=== PATIENT | female | born 1980 | race Caucasian/White ===

== ENCOUNTER 2017-09-17 16:59 | Emergency (ER) | payer SELFPAY ==
--- NOTE | 2017-09-17 17:17 | ED.PDOC ---
History of Present Illness - General Chief Complaint: General Stated Complaint: Right hand numbness/tingling, chest d Time Seen by Provider: 09/17/17 17:06 Source: patient - History of Present Illness Initial Comments: 36 YEAR OLD COMPLAINTS OF CHRONIC INTERMITTENT RIGHT SIDED SHARP CHEST PAIN ASSOCIATED WITH COUGH MOVEMENT FOR THE PAST SEVERAL MONTHS SHE HAS NO KNOWN CORONARY OR THROMBOEMBOLIC RISK FACTORS SHE HAS NO FEVER CHILLS NO TRAUMA NO ASSOCIATED SHORTNESS OF BREATH NO SYNCOPE NO DIAPHORESIS NO RADIATIONS TO ARM NECK OR JAW Timing/Duration: intermittent Severity: moderate Improving Factors: nothing Worsening Factors: nothing Associated Symptoms: denies symptoms Allergies/Adverse Reactions: Allergies NO KNOWN ALLERGY Allergy (Verified 09/17/17 17:14) Home Medications: Ambulatory Orders Naproxen [Naproxen EC] 500 mg PO Q12HRS #20 tab 09/17/17 Review of Systems - Review of Systems Constitutional: States: see HPI EENTM: States: no symptoms reported Respiratory: States: no symptoms reported Cardiology: States: see HPI Gastrointestinal/Abdominal: States: no symptoms reported Genitourinary: States: no symptoms reported Musculoskeletal: States: no symptoms reported Skin: States: no symptoms reported Neurological: States: no symptoms reported Endocrine: States: no symptoms reported Hematologic/Lymphatic: States: no symptoms reported All other Systems: Reviewed and Negative Past Medical History (General) - Patient Medical History Hx Stroke: No Hx Asthma: No Hx of COPD: No Hx Congestive Heart Failure: No Hx Hypertension: No Hx Thyroid Disease: No Hx Diabetes: No Hx Cancer: No Hx Hepatitis C: No Hx MRSA: No Surgical History: no surgical history - Vaccination History Hx Tetanus, Diphtheria Vaccination: No Hx Influenza Vaccination: No Hx Pneumococcal Vaccination: No - Social History Hx Tobacco Use: No Hx Chewing Tobacco Use: No Hx Alcohol Use: No Hx Substance Use: No Hx Substance Use Treatment: No Hx Depression: No Hx Physical Abuse: No Hx Emotional Abuse: No Hx Suspected Abuse: No - Female History Patient is a Female of Child Bearing Age (10 -59 yrs old): Yes Patient : No Family Medical History - Family History Mother Family History: Unknown Living Status: Still Living Hx Family Cancer: Yes Physical Exam - Physical Exam General Appearance: Anxious Eye Exam: bilateral normal, bilateral abnormal EOM Ears, Nose, Throat: hearing grossly normal, normal ENT inspection, normal pharynx, abnormal TM (R) Neck: non-tender, full range of motion, supple Respiratory: chest non-tender, lungs clear, normal breath sounds, no respiratory distress, no accessory muscle use Cardiovascular/Chest: normal peripheral pulses, regular rate, rhythm, no edema, no gallop, no JVD - TENDER OVER THE RIGHT COSTOCHONDRAL JUNCTIONS, no murmur Peripheral Pulses: radial,right: 2+, radial,left: 2+, femoral,right: 2+, femoral ,left: 2+ Gastrointestinal/Abdominal: normal bowel sounds, non tender, soft, no organomegaly, no pulsatile mass Back Exam: normal inspection, no CVA tenderness 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 Copy, Patient Portal Self Enrollment Diet: resume usual diet Activity: increase activity as tolerated Referrals: Miracle Almendarez NP [Primary Care Provider] - 1-2 Weeks Prescriptions: Naproxen [Naproxen EC] 500 mg PO Q12HRS #20 tab Home Medications: Ambulatory Orders Naproxen [Naproxen EC] 500 mg PO Q12HRS #20 tab 09/17/17
[2017-09-17] MEDS ORDERED: DEXAMETHASONE INJ 10 MG/ML VIAL IM ONE (17:21)
[2017-09-17] MEDS ORDERED: KETOROLAC TROMETHAMINE INJ 30 MG/ML VIAL IV ONE (17:21)
--- NOTE | 2017-09-17 18:01 | RAD ---
Procedure: XR CHEST 1 VIEW Exam Date: 09/17/2017 Ordering Provider: Haylee Vidales Clinical Indication: Cough Comparison: 12/15/2015 Findings: Cardiomediastinal silhouette: Within normal limits Pulmonary vasculature : Unremarkable Aortic contour: Unremarkable Focal lung consolidation: None Pleural effusion: None Pneumothorax: None Bones and soft tissues: Nonacute Impression: 1. No acute abnormalities in the chest. 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
[2017-09-17 18:28] VITALS: BP 115/65; TEMP 99.9; O2SAT 100
== END 2017-09-17 18:26 | disposition home or self-care (01) ==
LOC: ER 16:59
DX: M94.0 Chondrocostal junction syndrome [Tietze] (principal)

== ENCOUNTER 2018-06-22 19:52 | Emergency (ER) | payer SELFPAY ==
[2018-06-22 20:21] VITALS: TEMP 98.4
--- NOTE | 2018-06-22 20:35 | ED.PDOC ---
History of Present Illness - General Chief Complaint: Upper Extremity Injury Stated Complaint: right shoulder and arm pain Time Seen by Provider: 06/22/18 20:11 Source: patient Exam Limitations: no limitations - History of Present Illness Initial Comments: Jelena Mccall 37 y/o female stated that while she was walking at work had sudden onset of sharp pains on her right arm and numbness which had been constant for the last 1-2 hours and decided to come to ER.No chronic medical problem;no history of trauma recent or remote on neck and right upper extremities.Denies neck pains. Occurred: just prior to arrival Pain - Upper Extremity: moderate: Shoulder, right, Upper arm, right, Elbow, right, Forearm, right, Wrist, right, Hand, right Method of Injury: unknown, other - see hpi Improving Factors: nothing Worsening Factors: nothing Allergies/Adverse Reactions: Allergies NO KNOWN ALLERGY Allergy (Verified 06/22/18 20:21) Home Medications: Ambulatory Orders Methocarbamol [Robaxin] 750 mg PO BID PRN #10 tab 06/23/18 Tramadol HCl 50 mg PO TID PRN #14 tab 06/23/18 predniSONE 20 mg PO DAILY 7 Days #7 tab 06/23/18 Review of Systems - Review of Systems Constitutional: States: no symptoms reported EENTM: States: no symptoms reported Respiratory: States: no symptoms reported Cardiology: States: no symptoms reported Gastrointestinal/Abdominal: States: no symptoms reported Genitourinary: States: no symptoms reported Musculoskeletal: States: see HPI Skin: States: no symptoms reported Neurological: States: no symptoms reported Hematologic/Lymphatic: States: other - history of heavy periods since 18 y/o Past Medical History (General) - Patient Medical History Hx Seizures: No Hx Stroke: No Hx Dementia: No Hx Asthma: No Hx of COPD: No Hx Cardiac Disorders: No Hx Congestive Heart Failure: No Hx Pacemaker: No Hx Hypertension: No Hx Thyroid Disease: No Hx Diabetes: No Hx Gastroesophageal Reflux: No Hx Renal Disease: No Hx Cancer: No Hx of HIV: No Hx Hepatitis C: No Hx MRSA: No Surgical History: no surgical history - Vaccination History Hx Tetanus, Diphtheria Vaccination: No Hx Influenza Vaccination: No Hx Pneumococcal Vaccination: No - Social History Hx Tobacco Use: No Hx Chewing Tobacco Use: No Hx Alcohol Use: No Hx Substance Use: No Hx Substance Use Treatment: No Hx Depression: No Hx Physical Abuse: No Hx Emotional Abuse: No Hx Suspected Abuse: No - Female History Patient is a Female of Child Bearing Age (10 -59 yrs old): Yes Hx Last Menstrual Period: 06/18/18 - [id number] Patient : No Family Medical History - Family History Mother Family History: Unknown Living Status: Still Living Hx Family Hypertension: Yes - dad Hx Cardiac Disease: Yes - dad Hx Family Cancer: Yes Father Hx Family Hypertension: Yes Physical Exam - Physical Exam General Appearance: Alert, Comfortable, No apparent distress Eyes, Ears, Nose, Throat Exam: normal ENT inspection, TMs normal, pharynx normal Neck: non-tender, full range of motion, supple, normal inspection Cardiovascular/Respiratory: regular rate, rhythm, no M/R/G, normal peripheral pulses, no JVD, other - good radial pulses bilaterally Abdominal Exam: non-tender, no organomegaly Back Exam: normal inspection, no CVA tenderness, no vertebral tenderness Shoulder Exam: normal inspection, non-tender, no evidence of injury, normal ROM Elbow/Forearm Exam: normal inspection, non-tender, no evidence of injury, normal ROM Wrist Exam: normal inspection, non-tender, no evidence of injury, normal ROM Hand Exam: normal inspection, non-tender, no evidence of injury, normal ROM Neuro/Tendon: normal sensation, normal motor functions, normal tendon functions , responds to pain, no evidence tendon injury Mental Status: alert, oriented x 3 Skin Exam: normal color, warm/dry Progress - Progress Progress: 06/22/18 21:10 Vital Signs - 8 hr 06/22/18 20:00 Temperature 98.4 F Pulse Rate [ 76 monitor] Respiratory 18 Rate Blood Pressure 118/53 [Left Arm] O2 Sat by Pulse 97 Oximetry - Results/Orders Results/Orders: 06/22/18 20:38 IV Care:Saline Lock per Protoc QSHIFT 06/22/18 20:45 EKG STAT 06/22/18 22:06 Cervical Spine [CT] Stat Laboratory Results - last 24 hr 06/22/18 06/22/18 06/22/18 21:06 21:06 21:06 WBC 7.2 RBC 4.30 Hgb 10.3 L Hct 31.9 L MCV 74.3 L MCH 23.9 L MCHC 32.1 L RDW 16.8 H Plt Count 312 MPV 8.6 Absolute Neuts (auto) 4.80 Absolute Lymphs (auto) 1.80 Absolute Monos (auto) 0.50 Absolute Eos (auto) 0.10 Absolute Basos (auto) 0.00 Total Counted Cancelled Neutrophils % 66.5 Neutrophils % (Manual) Cancelled Lymphocytes % 24.7 Lymphocytes % (Manual) Cancelled Monocytes % 7.2 Monocytes % (Manual) Cancelled Eosinophils % 1.0 Basophils % 0.6 Band Neutrophils Cancelled Eosinophils Cancelled Basophils Cancelled Metamyelocytes Cancelled Myelocytes Cancelled Promyelocytes Cancelled Nucleated RBCs Cancelled Differential Comment Cancelled Hypersegmented Polys Cancelled Blast Cells Cancelled Plasma Cells Cancelled Other Cell Type Cancelled Hypochromia Cancelled Toxic Granulation Cancelled Dohle Bodies Cancelled Jaylen Rods Cancelled Platelet Estimate Cancelled Normal RBC Morphology Plts joann adequate Polychromasia Cancelled Poikilocytosis Cancelled Basophilic Stippling Cancelled Anisocytosis Cancelled Microcytosis Cancelled Macrocytosis Cancelled Spherocytes Cancelled Sickle Cells Cancelled Target Cells Cancelled Ovalocytes Cancelled Stomatocytes Cancelled Helmet Cells Cancelled [place] Bodies Cancelled [place] Rings Cancelled [place] Cells Cancelled Acanthocytes (Spur) Cancelled Rouleaux Cancelled Schistocytes Cancelled RBC Morph Comment Cancelled PUBS Tear Drop Cells Cancelled PT 10.7 INR 1.07 PTT (SP) 25.6 D-Dimer, Quantitative 0.31 Sodium 139 Potassium 3.8 Chloride 107 Carbon Dioxide 25 Anion Gap 10.8 L BUN 18 Creatinine 0.73 BUN/Creatinine Ratio 24.7 H Random Glucose 98 Serum Osmolality 279.4 Calcium 9.6 Magnesium 2.1 Total Bilirubin 0.4 Direct Bilirubin < 0.1 Indirect Bilirubin 0.3 AST 17 ALT 10 Alkaline Phosphatase 64 Creatine Kinase 108 CK-MB (CK-2) 1.1 CK-MB (CK-2) % Not Reportable Troponin I < 0.02 Serum Total Protein 7.9 Albumin 4.7 Urine Color Urine Appearance Urine pH Ur Specific [place] Urine Protein Urine Glucose (UA) Urine Ketones Urine Blood Urine Nitrite Urine Bilirubin Urine Urobilinogen Ur Leukocyte Esterase Urine RBC Urine WBC Ur Epithelial Cells Amorphous Sediment Urine Bacteria Urine Mucus Urine HCG, Qual 06/22/18 06/22/18 21:10 21:10 WBC RBC Hgb Hct MCV MCH MCHC RDW Plt Count MPV Absolute Neuts (auto) Absolute Lymphs (auto) Absolute Monos (auto) Absolute Eos (auto) Absolute Basos (auto) Total Counted Neutrophils % Neutrophils % (Manual) Lymphocytes % Lymphocytes % (Manual) Monocytes % Monocytes % (Manual) Eosinophils % Basophils % Band Neutrophils Eosinophils Basophils Metamyelocytes Myelocytes Promyelocytes Nucleated RBCs Differential Comment Hypersegmented Polys Blast Cells Plasma Cells Other Cell Type Hypochromia Toxic Granulation Dohle Bodies Jaylen Rods Platelet Estimate Normal RBC Morphology Polychromasia Poikilocytosis Basophilic Stippling Anisocytosis Microcytosis Macrocytosis Spherocytes Sickle Cells Target Cells Ovalocytes Stomatocytes Helmet Cells [place] Bodies [place] Rings Alexa Cells Acanthocytes (Spur) Rouleaux Schistocytes RBC Morph Comment PUBS Tear Drop Cells PT INR PTT (SP) D-Dimer, Quantitative Sodium Potassium Chloride Carbon Dioxide Anion Gap BUN Creatinine BUN/Creatinine Ratio Random Glucose Serum Osmolality Calcium Magnesium Total Bilirubin Direct Bilirubin Indirect Bilirubin AST ALT Alkaline Phosphatase Creatine Kinase CK-MB (CK-2) CK-MB (CK-2) % Troponin I Serum Total Protein Albumin Urine Color Yellow Urine Appearance Sl cloudy Urine pH 6.0 Ur Specific [place] 1.025 Urine Protein Negative Urine Glucose (UA) Negative Urine Ketones Trace Urine Blood Negative Urine Nitrite Negative Urine Bilirubin Negative Urine Urobilinogen 1.0 Ur Leukocyte Esterase Trace H Urine RBC 1-3 Urine WBC 1-3 Ur Epithelial Cells 3-5 Amorphous Sediment 2+ Urine Bacteria 1+ Urine Mucus Large Urine HCG, Qual Negative Discuss all test result with patient and the need for primary Md to get referred to a Neurologist for further evaluation - EKG/XRAY/CT XRAY: chest - and right shoulder no acute abnormalities noted/radiologist CT Ordered: Yes - C-Spine:5.5mm right upper thyroid lobe nodule - Additional EKG/XRAY/Consults EKG #2: Sinus, no ST T wave changes Comments: HR-69 Departure - Departure Clinical Impression: Right upper limb pain, Solitary nodule of right lobe of thyroid Anemia Qualifiers: Anemia type: unspecified type Qualified Code(s): D64.9 - Anemia, unspecified Time of Disposition: 23:52 Disposition: Discharge to Home or Self Care Condition: Good Departure Forms: ED Discharge - Pt. Copy, Patient Portal Self Enrollment Instructions: DI for Arm Pain Referrals: Miracle Almendarez NP [Primary Care Provider] - 1-2 Weeks Prescriptions: Methocarbamol [Robaxin] 750 mg PO BID PRN #10 tab PRN Reason: Muscle Spasms predniSONE 20 mg PO DAILY 7 Days #7 tab Tramadol HCl 50 mg PO TID PRN #14 tab PRN Reason: Pain Home Medications: Ambulatory Orders Methocarbamol [Robaxin] 750 mg PO BID PRN #10 tab 06/23/18 Tramadol HCl 50 mg PO TID PRN #14 tab 06/23/18 predniSONE 20 mg PO DAILY 7 Days #7 tab 06/23/18 Additional Instructions: Need to sign up with primary Md WINIFRED [phone] for follow up;Return to ER as needed if symptoms worsen
--- NOTE | 2018-06-22 21:13 | RAD ---
EXAM DESCRIPTION: Shoulder,Right 2 or More Views CLINICAL HISTORY: pain COMPARISON: None FINDINGS: 2 view(s) submitted. No fracture or dislocation is identified. Bone marrow attenuation is unremarkable. No radiopaque foreign body is identified. IMPRESSION: No acute fracture or dislocation. Electronically signed by: Lincoln Westbrook 06/22/2018 9:12 PM CDT
--- NOTE | 2018-06-22 21:13 | RAD ---
EXAM DESCRIPTION: Chest,1 View CLINICAL HISTORY: pain COMPARISON: 09/17/2017 FINDINGS: Cardiac silhouette is within normal limits. There is no focal parenchymal or pleural disease. Visualized osseous structures are within normal limits. IMPRESSION: No evidence of acute cardiopulmonary disease. Electronically signed by: Lincoln Westbrook 06/22/2018 9:11 PM CDT
[2018-06-22] MEDS ORDERED: HYDROcodone 10MG/APAP 325MG 1 EA TAB PO ONE (22:58)
[2018-06-22] MEDS ORDERED: METHOCARBAMOL 750 MG TAB PO ONE (23:52)
[2018-06-22] MEDS ORDERED: HYDROCOD/APAP 10/325 (ER DISP) # 3 tablets PO ONE (23:52)
[2018-06-23] MEDS ORDERED: predniSONE 20 MG TAB PO ONE (00:01)
[2018-06-23 00:17] VITALS: BP 103/59; O2SAT 99
--- NOTE | 2018-06-23 00:53 | CT ---
EXAM: POST CONTRAST SOFT TISSUE NECK/CERVICAL SPINE CT EXAMINATION. CLINICAL INDICATION: Right shoulder pain and arm pain. COMPARISON: No comparisons are available. TECHNIQUE: Using low-dose helical technique, thin section axial images were performed through the neck after the uncomplicated administration of intravenous contrast material. CT sagittal coronal reconstructions were also obtained. FINDINGS: Loss of normal mid cervical lordosis which may represent sequela of muscle spasm. Precervical soft tissue thickness is normal. No spondylolisthesis or facet joint dislocation. No lytic or blastic bone lesions. No evidence of hemorrhage in the spinal canal. Great vessels are normal. Nasopharyngeal structures appear symmetrically normal. The partially visualized middle ears and mastoid air cells are clear. Pharyngeal and hypopharyngeal structures are normal. Epiglottis appears normal. Laryngeal structures are symmetrically normal. Subtle 5.5 mm noncalcified upper right thyroid nodule. The pulmonary apices are clear. The submandibular glands are symmetrically normal. The partially visualized parotid glands are grossly normal. IMPRESSION: 1. Loss of normal mid cervical lordosis which may represent sequela of muscle spasm. 2. No fractures, spondylolisthesis or facet joint dislocation. 3. No bony spinal canal or neuroforaminal stenosis. 4. 5.5 mm noncalcified subtle right upper thyroid lobe nodule. No imaging follow-up recommended. This exam was performed according to our departmental dose-optimization program, which includes automated exposure control, adjustment of the mA and/or kV according to patient size and/or use of iterative reconstruction technique. 1.Further evaluation by thyroid US recommended for: -Solitary ITN with high risk imaging features (locally invasive nodule or suspicious lymph nodes) -Solitary ITN of any size in pediatric pts. <= 18 years of age -Solitary ITN >= 1 cm in axial plane in pts. between 18 and 35 years of age -Solitary ITN >= 1.5 cm in axial plane in pts >= 35 years of age -Heterogeneous enlarged thyroid gland -ITN avid on FDG-PET or other nuclear medicine (MIBI and octreotide) scans. FNA biopsy is also recommended for PET avid nodules. 2.No f/u imaging is recommended for ITNs not meeting the above criteria. 3.For multiple thyroid nodules, the above recommendations for solitary ITN are to be applied to the largest nodule. 4.No US or f/u recommended for ITNs without high risk features in pts. with limited life expectancy or significant co-morbidities, unless clinically warranted. 5.These recommendations do not apply to pts. w/ increased risk for thyroid cancer or pts. with symptomatic thyroid disease. Recommendations for f/u of Incidental Thyroid Nodules (ITN) found on CT, MR, NM and Extrathyroidal US are based upon the ACR white paper and Cardoso 3-tiered system for managing ITNs: J Am Garrick Radiol. 2015 Sep;12(2): 143-50 Electronically signed by: Kemar Hare MD 06/22/2018 11:04 PM CDT
== END 2018-06-23 00:18 | disposition home or self-care (01) ==
LOC: ER 19:52
DX: M79.621 Pain in right upper arm (principal); D64.9 Anemia, unspecified; E04.1 Nontoxic single thyroid nodule
CPT/HCPCS: 36415; 71045; 72125; 73030; 80048; 80076; 81001; 81025; 82550; 82553; 84484; 85025; 85379; 85610; 85730; 93005; J7512

== ENCOUNTER 2019-02-19 11:43 | Emergency (ER) | payer SELFPAY ==
[2019-02-19 12:23] VITALS: TEMP 98.1
--- NOTE | 2019-02-19 12:37 | ED.PDOC ---
History of Present Illness - General Stated Complaint: swelling of hand Time Seen by Provider: 02/19/19 12:33 Source: patient Exam Limitations: no limitations - History of Present Illness Initial Comments: patient comes in for swelling and change in coloration of her right hand. She states that a little bit sore but not physically painful. She denies any trauma or injury to it. Patient stated on she stay a coworker noted that she had a ball with considerable swelling. Today it looks green and purple throughout her hand. She denies any injury or change in activity. She's never had problems with before. She has no past medical history. She does not smoke, drink, or take illicit substances. Occurred: other - started on Pain - Upper Extremity: mild: Hand, right Method of Injury: unknown Improving Factors: nothing Worsening Factors: movement Allergies/Adverse Reactions: Allergies NO KNOWN ALLERGY Allergy (Verified 06/22/18 20:21) Review of Systems - Review of Systems Constitutional: States: no symptoms reported EENTM: States: no symptoms reported Respiratory: States: no symptoms reported Cardiology: States: no symptoms reported Musculoskeletal: States: see HPI Past Medical History (General) - Patient Medical History Hx Seizures: No Hx Stroke: No Hx Dementia: No Hx Asthma: No Hx of COPD: No Hx Cardiac Disorders: No Hx Congestive Heart Failure: No Hx Pacemaker: No Hx Hypertension: No Hx Thyroid Disease: No Hx Diabetes: No Hx Gastroesophageal Reflux: No Hx Renal Disease: No Hx Cancer: No Hx of HIV: No Hx Hepatitis C: No Hx MRSA: No - Vaccination History Hx Tetanus, Diphtheria Vaccination: No Hx Influenza Vaccination: No Hx Pneumococcal Vaccination: No - Social History Hx Tobacco Use: No Hx Chewing Tobacco Use: No Hx Alcohol Use: No Hx Substance Use: No Hx Substance Use Treatment: No Hx Depression: No Hx Physical Abuse: No Hx Emotional Abuse: No Hx Suspected Abuse: No - Female History Hx Last Menstrual Period: 06/18/18 - [id number] Patient : No Family Medical History - Family History Mother Family History: Unknown Living Status: Still Living Hx Family Hypertension: - dad Hx Cardiac Disease: Yes - dad Hx Family Cancer: Yes Father Living Status: Still Living Hx Family Asthma: No Hx Family Congestive Heart Failure: No Hx Family Hypertension: Yes Hx Family Stroke: No Hx Cardiac Disease: No Hx Family Diabetes: No Physical Exam - Physical Exam General Appearance: Alert, Comfortable, No apparent distress Eyes, Ears, Nose, Throat Exam: PERRL/EOMI Cardiovascular/Respiratory: regular rate, rhythm, no M/R/G, normal peripheral pulses, normal breath sounds, no respiratory distress Abdominal Exam: non-tender Hand Exam: ecchymosis - patient with cystic structure of .5 sm on 4th metatarsal with surrounding healing bruise and swelling that extends from MIP to wrist no purulence no skin break, no insect bite, no scaling, no calor Progress - Results/Orders Results/Orders: negative xray Departure - Departure Clinical Impression: Ruptured ganglion cyst Disposition: Discharge to Home or Self Care Condition: Good Referrals: Uriel Pelayo MD [Primary Care Provider] - 1-2 Weeks Additional Instructions: follow up with PCP in 1-2 weeks to discuss if need to drain cyst
--- NOTE | 2019-02-19 13:32 | RAD ---
EXAM DESCRIPTION: Hand,Right 2 Views CLINICAL HISTORY: pain with bruising COMPARISON: None Available. TECHNIQUE: Two views right hand FINDINGS: Two views right hand demonstrate normal alignment. No fracture or dislocation is seen. The bones are well-mineralized with very little degenerative arthropathy. IMPRESSION: 1. Negative right hand two views. Electronically signed by: Wayne Joyner MD 02/19/2019 1:30 PM CDT
[2019-02-19 14:07] VITALS: BP 177/74; O2SAT 95
== END 2019-02-19 13:40 | disposition home or self-care (01) ==
LOC: ER 11:43
DX: M66.14 Rupture of synovium, hand and fingers (principal)

== ENCOUNTER 2019-08-03 19:01 | Emergency (ER) | payer SELFPAY ==
[2019-08-03] MEDS ORDERED: SODIUM CHLORIDE 0.9% (FLUSH) 10 ML SYG IV PRN (19:33)
[2019-08-03] MEDS ORDERED: SODIUM CHLORIDE 0.9% 1000ML 1,000 ML IVS ONE (19:34)
--- NOTE | 2019-08-03 20:16 | RAD ---
EXAM: Chest,1 View CLINICAL INDICATION: Syncope COMPARISON: 06/22/2018 FINDINGS: A single view of the chest was obtained. The heart size is normal. The pulmonary vascularity is unremarkable. The lungs are clear. There is no consolidation, infiltrate, pleural effusion, or pneumothorax. IMPRESSION: Normal chest radiograph. 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
--- NOTE | 2019-08-03 20:43 | ED.PDOC ---
History of Present Illness - General Time Seen by Provider: 08/03/19 19:33 Source: patient - History of Present Illness Initial Comments: 38 yo female with PMH of AUB, anemia who presents with cc of lightheadedness and syncope. Reports symptoms ongoing now for 3 weeks. States lightheadedness sx's are getting more frequent past 2-3 days. States feels like she might pass out numerous times all throughout the day, happening sporadically both at rest and with exertion. States 1 week ago she had brief LOC while at work cleaning a room and woke up a few seconds later lying on the ground but denies any injuries. Reports chronic sx's of heavy menstrual bleeding. States used to have vaginal bleeding for 3 months at a time. Currently having bleeding once every 2 weeks and typically lasts 7-8 days and goes through 3-4 boxes of tampons over that period. Reports intermittent right sided sharp chest pains but no dyspnea or palpitations. Denies abd pain, n/v/d, urinary sx's, edema, fevers, chills. Dr. Traylor is her PCP and has previously recommended she see marketing and development coordinator for consultation of a hysterectomy for these same sx's. Allergies/Adverse Reactions: Allergies NO KNOWN ALLERGY Allergy (Verified 06/22/18 20:21) Review of Systems - Review of Systems Review of Systems: 08/03/19 22:13 as per HPI All other Systems: Reviewed and Negative Past Medical History (General) - Patient Medical History Hx Seizures: No Hx Stroke: No Hx Dementia: No Hx Asthma: No Hx of COPD: No Hx Cardiac Disorders: No Hx Congestive Heart Failure: No Hx Pacemaker: No Hx Hypertension: No Hx Thyroid Disease: No Hx Diabetes: No Hx Gastroesophageal Reflux: No Hx Renal Disease: No Hx Cancer: No Hx of HIV: No Hx Hepatitis C: No Hx MRSA: No - Vaccination History Hx Tetanus, Diphtheria Vaccination: No Hx Influenza Vaccination: No Hx Pneumococcal Vaccination: No - Social History Hx Tobacco Use: No Hx Chewing Tobacco Use: No Hx Alcohol Use: No Hx Substance Use: No Hx Substance Use Treatment: No Hx Depression: No Hx Physical Abuse: No Hx Emotional Abuse: No Hx Suspected Abuse: No - Female History Hx Last Menstrual Period: 06/18/18 - [id number] Patient : No Family Medical History - Family History Father Living Status: Still Living Hx Family Asthma: No Hx Family Congestive Heart Failure: No Hx Family Hypertension: Yes Hx Family Stroke: No Hx Cardiac Disease: No Hx Family Diabetes: No Mother Family History: Unknown Living Status: Still Living Hx Family Hypertension: - dad Hx Cardiac Disease: Yes - dad Hx Family Cancer: Yes Physical Exam - Physical Exam General Appearance: Alert, Comfortable, No apparent distress Eye Exam: bilateral normal Ears, Nose, Throat: hearing grossly normal, normal ENT inspection, normal pharynx Neck: non-tender, full range of motion, supple, normal inspection Respiratory: chest non-tender, lungs clear, normal breath sounds, no respiratory distress, no accessory muscle use Cardiovascular/Chest: normal peripheral pulses, regular rate, rhythm, no edema, no gallop, no murmur Gastrointestinal/Abdominal: normal bowel sounds, non tender, soft, no organomegaly Back Exam: normal inspection, no CVA tenderness, no vertebral tenderness Extremity: normal range of motion, non-tender, normal inspection, no pedal edema, no calf tenderness, normal capillary refill Neurologic: laboratory chief II-XII nml as tested, no motor/sensory deficits, alert, normal mood/affect, oriented x 3 Skin Exam: warm/dry, pallor - noted to BL conjunctiva, also noted lack of lunula to fingernails Progress - Progress Progress: 08/03/19 20:14 Syncope, lightheadedness -suspect multifactorial in nature but likely heavy menstrual cycles and anemia large contributor. Consider also electrolyte derangement vs arrhythmia vs ACS vs PE vs infectious vs psychogenic vs other -obtain labs, UA, CXR, EKG 08/04/19 02:34 -labs largely unremarkable - UA equivocal for possible UTI but as pt denies any acute sx's will hold off on any Abx for now and follow cx's. -CXR no acute processes per my read -pt has remained stable in ED, no syncopal episodes, vitals wnl, no arrhythmias noted -discussed results and uncertain of etiology of sx's but does not appear emergent. Advised she have further outpatient work-up and f/u with her PCP, mohinder for her AUB. -dc home in good condition Giacomo Humphrey MD Billing #[id number] - EKG/XRAY/CT EKG: Sinus - NSR, HR 75, no ST elevations or q waves, axis normal, intervals normal, appears unchanged from 06/22/18 EKG Departure - Departure Clinical Impression: Syncope, Abnormal uterine bleeding (AUB) Time of Disposition: 22:17 Disposition: Discharge to Home or Self Care Condition: Good Departure Forms: ED Discharge - Pt. Copy, Patient Portal Self Enrollment Instructions: Heavy Periods (DC) Diet: resume usual diet Referrals: Uriel Pelayo MD [Primary Care Provider] - 1-2 Weeks Additional Instructions: Remain well-hydrated. I advise taking once daily iron supplements OTC. Follow up with your primary care doctor in 1-2 weeks is recommended. Advise no driving or operating heavy machinery or other dangerous activities until cleared by PCP.
[2019-08-03 22:31] VITALS: O2SAT 100
[2019-08-03 22:48] VITALS: BP 129/69; TEMP 97.5
== END 2019-08-03 22:25 | disposition home or self-care (01) ==
LOC: ER 19:01
DX: R55 Syncope and collapse (principal); N93.9 Abnormal uterine and vaginal bleeding, unspecified; R42 Dizziness and giddiness; R07.9 Chest pain, unspecified
CPT/HCPCS: 71045; 80053; 81001; 81025; 84484; 85025; 85379; 93005; J7030

== ENCOUNTER 2020-02-01 19:52 | Emergency (ER) | payer OTHER ==
[2020-02-01] MEDS ORDERED: MORPHINE SULFATE INJ 10 MG/ML VIAL IV ONE (20:19)
[2020-02-01 20:24] VITALS: TEMP 98.5
[2020-02-01 20:36] VITALS: O2SAT 98
[2020-02-01] MEDS ORDERED: KETOROLAC TROMETHAMINE INJ 30 MG/ML VIAL IM ONE (21:02)
[2020-02-01 21:20] VITALS: BP 101/80
[2020-02-01] MEDS ORDERED: HYDROcodone 7.5MG/APAP 325MG 1 EA TAB PO ONE (21:41)
--- NOTE | 2020-02-01 21:44 | ED.PDOC ---
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 The patient reports that she has gone through a box of tampons in the last 5 hours. The patient missed her period last month. She has had her tubes tied. Bleeding st arted abruptly as did the pain. No syncope or near syncope in it. No chest pain. The patient does not smoke. She does have a history of longstanding ovarian cysts. The patient has had dysfunctional uterine bleeding in the past. No history of any cardiovascular issues. Timing/Duration: 4-6 hours Severity: severe Improving Factors: nothing Worsening Factors: nothing Associated Symptoms: denies symptoms Allergies/Adverse Reactions: Allergies NO KNOWN ALLERGY Allergy (Verified 06/22/18 20:21) Home Medications: Ambulatory Orders Estradiol 4 mg PO DAILY #4 tab 02/01/20 Tramadol HCl 50 mg PO Q8HR PRN #20 tab 02/01/20 medroxyPROGESTERone TAB [Provera] 10 mg PO DAILY #20 tab 02/01/20 Review of Systems - Review of Systems Constitutional: States: no symptoms reported EENTM: States: no symptoms reported Respiratory: States: no symptoms reported Cardiology: States: no symptoms reported Gastrointestinal/Abdominal: States: abdominal pain Genitourinary: States: see HPI Musculoskeletal: States: no symptoms reported Skin: States: no symptoms reported Neurological: States: no symptoms reported Endocrine: States: no symptoms reported All other Systems: No Change from Baseline Past Medical History (General) - Patient Medical History Hx Seizures: No Hx Stroke: No Hx Dementia: No Hx Asthma: No Hx of COPD: No Hx Cardiac Disorders: No Hx Congestive Heart Failure: No Hx Pacemaker: No Hx Hypertension: No Hx Thyroid Disease: No Hx Diabetes: No Hx Gastroesophageal Reflux: No Hx Renal Disease: No Hx Cancer: No Hx of HIV: No Hx Hepatitis C: No Hx MRSA: No - Vaccination History Hx Tetanus, Diphtheria Vaccination: No Hx Influenza Vaccination: No Hx Pneumococcal Vaccination: No - Social History Hx Tobacco Use: No Hx Chewing Tobacco Use: No Hx Alcohol Use: No Hx Substance Use: No Hx Substance Use Treatment: No Hx Depression: No Hx Physical Abuse: No Hx Emotional Abuse: No Hx Suspected Abuse: No - Female History Hx Last Menstrual Period: 06/18/18 - [id number] Patient : No Family Medical History - Family History Mother Family History: Unknown Living Status: Still Living Hx Family Hypertension: - dad Hx Cardiac Disease: Yes - dad Hx Family Cancer: Yes Father Living Status: Still Living Hx Family Asthma: No Hx Family Congestive Heart Failure: No Hx Family Hypertension: Yes Hx Family Stroke: No Hx Cardiac Disease: No Hx Family Diabetes: No Physical Exam - Physical Exam General Appearance: Alert, Anxious, Obvious distress Eye Exam: bilateral normal Ears, Nose, Throat: hearing grossly normal, normal ENT inspection Neck: full range of motion, supple Respiratory: lungs clear, normal breath sounds, no respiratory distress, no accessory muscle use Cardiovascular/Chest: normal peripheral pulses, regular rate, rhythm, no edema Peripheral Pulses: radial,right: 2+, radial,left: 2+ Gastrointestinal/Abdominal: soft, other - Mild suprapubic discomfort to palpation. No rebound or peritoneal signs. No palpable mass. Rectal Exam: deferred Back Exam: no CVA tenderness, no vertebral tenderness Extremity: normal range of motion, non-tender, normal inspection, no pedal edema, normal capillary refill Neurologic: lap machine tender II-XII nml as tested, alert, normal mood/affect, oriented x 3 Skin Exam: normal color Comments: Vital Signs - 24 hr 02/01/20 02/01/20 02/01/20 19:54 20:35 21:17 Temperature 98.5 F Pulse Rate [ 87 88 88 monitor] Respiratory 18 16 16 Rate Blood Pressure 115/78 105/76 101/80 [Left Arm] O2 Sat by Pulse 97 98 98 Oximetry Progress - Progress Progress: 02/01/20 21:45 The patient is a 39-year-old female presented emergency room secondary to pelvic cramping with what appears to be dysfunctional uterine bleeding in the form of menorrhagia. Vital signs as well as hemoglobin and hematocrit are reassuring. The patient is likely having this issue due to ovarian cysts as she does have a history. The patient is going to be placed on 3 days of estradiol followed by 10 days of progesterone. She needs to follow back up with Dr. Henriquez next week for further evaluation and management. Return to the emergency room obviously for any significant worsening. The patient will be written for a small amount of tramadol for as needed use for the cramping. [facility] consulted jessica ruiz [phone] - Results/Orders Results/Orders: Low resolution ultrasound performed by me shows no evidence any definitive . Laboratory Results - last 24 hr 02/01/20 02/01/20 02/01/20 19:45 19:45 20:10 WBC 7.9 RBC 4.64 Hgb 12.8 Hct 38.2 MCV 82.3 MCH 27.6 MCHC 33.5 RDW 14.6 H Plt Count 298 MPV 8.8 Absolute Neuts (auto) 5.90 Absolute Lymphs (auto) 1.50 Absolute Monos (auto) 0.50 Absolute Eos (auto) 0.00 Absolute Basos (auto) 0.00 Neutrophils % 74.3 Lymphocytes % 18.4 L Monocytes % 6.5 Eosinophils % 0.6 L Basophils % 0.2 Sodium 138 Potassium 3.5 L Chloride 106 Carbon Dioxide 22 Anion Gap 13.5 BUN 13 Creatinine 0.69 BUN/Creatinine Ratio 18.8 Random Glucose 94 Serum Osmolality 275.5 Calcium 9.4 Total Bilirubin 0.9 AST 19 ALT 11 Alkaline Phosphatase 88 Serum Total Protein 8.3 H Albumin 4.5 Globulin 3.8 H Albumin/Globulin Ratio 1.2 Urine Color Urine Appearance Urine pH Ur Specific [place] Urine Protein Urine Glucose (UA) Urine Ketones Urine Blood Urine Nitrite Urine Bilirubin Urine Urobilinogen Ur Leukocyte Esterase Urine RBC Urine WBC Ur Epithelial Cells Urine Bacteria Urine HCG, Qual Negative 02/01/20 20:10 WBC RBC Hgb Hct MCV MCH MCHC RDW Plt Count MPV Absolute Neuts (auto) Absolute Lymphs (auto) Absolute Monos (auto) Absolute Eos (auto) Absolute Basos (auto) Neutrophils % Lymphocytes % Monocytes % Eosinophils % Basophils % Sodium Potassium Chloride Carbon Dioxide Anion Gap BUN Creatinine BUN/Creatinine Ratio Random Glucose Serum Osmolality Calcium Total Bilirubin AST ALT Alkaline Phosphatase Serum Total Protein Albumin Globulin Albumin/Globulin Ratio Urine Color Red H Urine Appearance Turbid Urine pH 5.0 Ur Specific [place] 1.025 Urine Protein >=300 H Urine Glucose (UA) Negative Urine Ketones 15 H Urine Blood Large H Urine Nitrite Negative Urine Bilirubin Large Urine Urobilinogen 2.0 H Ur Leukocyte Esterase Large H Urine RBC Tntc H Urine WBC >50 H Ur Epithelial Cells 1-3 Urine Bacteria 0 Urine HCG, Qual Departure - Departure Clinical Impression: Menorrhagia with irregular cycle Disposition: Discharge to Home or Self Care Condition: Fair Departure Forms: ED Discharge - Pt. Copy, Patient Portal Self Enrollment Instructions: DI for Vaginal Bleeding Diet: regular diet Activity: increase activity as tolerated Referrals: Uriel Pelayo MD [Primary Care Provider] - 1-2 Weeks Prescriptions: Tramadol HCl 50 mg PO Q8HR PRN #20 tab PRN Reason: Moderate Pain Estradiol 4 mg PO DAILY #4 tab medroxyPROGESTERone TAB [Provera] 10 mg PO DAILY #20 tab Home Medications: Ambulatory Orders Estradiol 4 mg PO DAILY #4 tab 02/01/20 Tramadol HCl 50 mg PO Q8HR PRN #20 tab 02/01/20 medroxyPROGESTERone TAB [Provera] 10 mg PO DAILY #20 tab 02/01/20 Additional Instructions: The patient is a 39-year-old female presented emergency room secondary to pelvic cramping with what appears to be dysfunctional uterine bleeding in the form of menorrhagia. Vital signs as well as hemoglobin and hematocrit are reassuring. The patient is likely having this issue due to ovarian cysts as she does have a history. The patient is going to be placed on 3 days of estradiol followed by 10 days of provera. She needs to follow back up with Dr. Henriquez next week for further evaluation and management. Return to the emergency room obviously for any significant worsening. The patient will be written for a small amount of tramadol for as needed use for the cramping.
[2020-02-01] MEDS ORDERED: ESTRADIOL TAB 1 MG PO ONE (21:53)
[2020-02-02] MEDS ORDERED: ESTRADIOL TAB 1 MG PO ONE ×2 (21:41)
== END 2020-02-01 22:12 | disposition home or self-care (01) ==
LOC: ER 20:16
DX: N92.0 Excessive and frequent menstruation with regular cycle (principal); M54.5 Low back pain
CPT/HCPCS: 80053; 81001; 81025; 85025; 87086; J1885; J2270

== ENCOUNTER 2020-03-07 06:48 | Emergency (ER) | payer OTHER ==
--- NOTE | 2020-03-07 07:22 | ED.PDOC ---
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 Her L forearm was crushed between the patient and a wall. C/o pain just proximal to wrist Allergies/Adverse Reactions: Allergies NO KNOWN ALLERGY Allergy (Verified 03/07/20 07:11) Home Medications: Ambulatory Orders Ferrous Sulfate [Iron] 65 mg PO DAILY 03/07/20 Past Medical History (General) - Patient Medical History Hx Seizures: No Hx Stroke: No Hx Dementia: No Hx Asthma: No Hx of COPD: No Hx Cardiac Disorders: No Hx Congestive Heart Failure: No Hx Pacemaker: No Hx Hypertension: No Hx Thyroid Disease: No Hx Diabetes: No Hx Gastroesophageal Reflux: No Hx Renal Disease: No Hx Cancer: No Hx of HIV: No Hx Hepatitis C: No Hx MRSA: No Surgical History: other - Vaccination History Hx Tetanus, Diphtheria Vaccination: No Hx Influenza Vaccination: Yes Hx Pneumococcal Vaccination: No - Social History Hx Tobacco Use: No Hx Chewing Tobacco Use: No Hx Alcohol Use: No Hx Substance Use: No Hx Substance Use Treatment: No Hx Depression: No Hx Physical Abuse: No Hx Emotional Abuse: No Hx Suspected Abuse: No - Female History Patient is a Female of Child Bearing Age (10 -59 yrs old): Yes Hx Last Menstrual Period: 06/18/18 - [id number] Patient : No - Pt denies Family Medical History - Family History Father Living Status: Still Living Hx Family Asthma: No Hx Family Congestive Heart Failure: No Hx Family Hypertension: Yes Hx Family Stroke: No Hx Cardiac Disease: No Hx Family Diabetes: No Mother Family History: Unknown Living Status: Still Living Hx Family Hypertension: - dad Hx Cardiac Disease: Yes - dad Hx Family Cancer: Yes Departure - Departure Clinical Impression: Sprain of forearm Qualifiers: Encounter type: initial encounter Laterality: left Qualified Code(s): S63.502A - Unspecified sprain of left wrist, initial encounter Disposition: Discharge to Home or Self Care Condition: Good Departure Forms: ED Discharge - Pt. Copy, Patient Portal Self Enrollment Instructions: DI for Forearm Muscle Strain, DI for Arm Pain Referrals: Miralce Almendarez NP [Primary Care Provider] - 1-2 Weeks Home Medications: Ambulatory Orders Ferrous Sulfate [Iron] 65 mg PO DAILY 03/07/20
--- NOTE | 2020-03-07 07:25 | ED.PDOC ---
History of Present Illness - General Chief Complaint: Upper Extremity Injury Stated Complaint: L wrist pain Time Seen by Provider: 03/07/20 07:04 - History of Present Illness Occurred: yesterday Pain - Upper Extremity: moderate: Wrist, left Method of Injury: other - crushed Improving Factors: cold therapy Worsening Factors: movement Allergies/Adverse Reactions: Allergies NO KNOWN ALLERGY Allergy (Verified 03/07/20 07:11) Home Medications: Ambulatory Orders Ferrous Sulfate [Iron] 65 mg PO DAILY 03/07/20 Review of Systems - Review of Systems Constitutional: States: no symptoms reported Musculoskeletal: States: other - forearm Skin: States: no symptoms reported Neurological: States: no symptoms reported Past Medical History (General) - Patient Medical History Hx Seizures: No Hx Stroke: No Hx Dementia: No Hx Asthma: No Hx of COPD: No Hx Cardiac Disorders: No Hx Congestive Heart Failure: No Hx Pacemaker: No Hx Hypertension: No Hx Thyroid Disease: No Hx Diabetes: No Hx Gastroesophageal Reflux: No Hx Renal Disease: No Hx Cancer: No Hx of HIV: No Hx Hepatitis C: No Hx MRSA: No Surgical History: other - Vaccination History Hx Tetanus, Diphtheria Vaccination: No Hx Influenza Vaccination: Yes Hx Pneumococcal Vaccination: No - Social History Hx Tobacco Use: No Hx Chewing Tobacco Use: No Hx Alcohol Use: No Hx Substance Use: No Hx Substance Use Treatment: No Hx Depression: No Hx Physical Abuse: No Hx Emotional Abuse: No Hx Suspected Abuse: No - Female History Patient is a Female of Child Bearing Age (10 -59 yrs old): Yes Hx Last Menstrual Period: 06/18/18 - [id number] Patient : No - Pt denies Family Medical History - Family History Mother Family History: Unknown Living Status: Still Living Hx Family Hypertension: - dad Hx Cardiac Disease: Yes - dad Hx Family Cancer: Yes Father Living Status: Still Living Hx Family Asthma: No Hx Family Congestive Heart Failure: No Hx Family Hypertension: Yes Hx Family Stroke: No Hx Cardiac Disease: No Hx Family Diabetes: No Physical Exam - Physical Exam General Appearance: Alert, No apparent distress Neck: full range of motion Cardiovascular/Respiratory: normal peripheral pulses - L and R radial Wrist Exam: soft tissue tenderness - L forearm is swollen just proximal to wrist. Moving wrist or hand causes pain. Mental Status: alert, oriented x 3 Skin Exam: warm/dry Departure - Departure Clinical Impression: Sprain of forearm Qualifiers: Encounter type: initial encounter Laterality: left Qualified Code(s): S63.502A - Unspecified sprain of left wrist, initial encounter Condition: Good Departure Forms: ED Discharge - Pt. Copy, Patient Portal Self Enrollment Instructions: DI for Arm Pain, DI for Forearm Muscle Strain Referrals: Miracle Almendarez NP [Primary Care Provider] - 1-2 Weeks Home Medications: Ambulatory Orders Ferrous Sulfate [Iron] 65 mg PO DAILY 03/07/20
--- NOTE | 2020-03-07 08:16 | RAD ---
EXAM: Wrist,Left 2 Views CLINICAL INDICATION: Left wrist pain COMPARISON: There is no previous study for comparison. FINDINGS: 2 views of the left wrist reveal no fracture. The carpal bones and carpal interosseous spaces are intact. There are no radiopaque foreign bodies. The osseous structures are intact and unremarkable except for a small bone island in the distal radius. IMPRESSION: Negative left wrist radiographs. Electronically signed by: Bro Rodriguez MD 03/07/2020 8:15 AM CDT
[2020-03-07 08:31] VITALS: BP 111/73; TEMP 97.8; O2SAT 100
== END 2020-03-07 08:33 | disposition home or self-care (01) ==
LOC: ER 06:48
DX: S63.502A Unspecified sprain of left wrist, initial encounter (principal); W18.09XA Striking against other object with subsequent fall, initial encounter; Y92.129 Unspecified place in nursing home as the place of occurrence of the external cause; Y99.0 Civilian activity done for income or pay